=== PATIENT | female | born 1965 ===

== ENCOUNTER 2016-09-18 16:57 | Emergency (ER) | payer BC ==
[2016-09-18 17:16] VITALS: BP 118/67; PULSE 61; RESP 16; TEMP 97.5; O2SAT 100
--- NOTE | 2016-09-18 17:28 | ED PDOC ---
HPI: Abdomen Time Seen by Provider: 09/18/16 17:05 Chief Complaint (Nursing): Abdominal Pain Chief Complaint (Provider): Abdominal pain History Per: Patient Additional Complaint(s): 51 yo female, PMH of Fibromyalgia, presents to ED for evaluation of right abdominal pain since yesterday. Patient also reports vomiting and diarrhea. complains of generalized weakness. Past Medical History Vital Signs: Last Vital Signs Temp 97.5 F L 09/18/16 17:14 Pulse 61 09/18/16 17:14 Resp 16 09/18/16 17:14 BP 118/67 09/18/16 17:14 Pulse Ox 100 09/18/16 17:28 - Medical History PMH: Arthritis, Fibromyalgia, GERD, Chronic Pain Denies: Chronic Kidney Disease - Surgical History Surgical History: Cholecystectomy - Family History Family History: States: Unknown Family Hx - Immunization History Hx Tetanus Toxoid Vaccination: No Hx Influenza Vaccination: No Hx Pneumococcal Vaccination: No - Home Medications Home Medications: Ambulatory Orders Medication Instructions Recorded Fentanyl 1 each TD Q3D 02/23/16 Gabapentin [Neurontin] 1 cap PO TID #90 cap 02/23/16 traMADol [Ultram] 1 tab PO QID PRN #20 tab 02/23/16 Albuterol HFA [Ventolin HFA 90 2 puff IH [id number] PRN #1 bottle 05/07/16 mcg/actuation (8 g)] DiphenhydrAMINE [Benadryl] 25 mg PO Q6H #20 cap 05/07/16 Famotidine [Pepcid] 20 mg PO BID #20 tab 05/07/16 Prednisone 50 mg PO DAILY #4 tab 05/07/16 Ciprofloxacin [Cipro] 500 mg PO BID #6 tab 09/18/16 Ondansetron ODT [Zofran ODT] 4 mg PO Q6 PRN #10 odt 09/18/16 - Allergies Allergies/Adverse Reactions: Allergies Allergy/AdvReac Type Severity Reaction Status Date / Time seafood Allergy Intermediate RASH Uncoded 09/18/16 17:14 - Laboratory Results Result Diagrams: 09/18/16 17:49 09/18/16 17:49 - ECG O2 Sat by Pulse Oximetry: 100 Disposition - Clinical Impression Clinical Impression: UTI (lower urinary tract infection), Gastroenteritis - Patient ED Disposition Is Patient to be Admitted: No - Disposition Disposition: Routine/Home Disposition Time: 20:05 Condition: STABLE Prescriptions: Ciprofloxacin [Cipro] 500 mg PO BID #6 tab Ondansetron ODT [Zofran ODT] 4 mg PO Q6 PRN #10 odt PRN Reason: Nausea/Vomiting Instructions: Urinary Tract Infection in Women (DC), Gastroenteritis (ED) - POA Present On Arrival: None
[2016-09-18 17:53] LABS: BASO # 0.1 K/uL (0.0-0.2); BASO % 1.2 % (0.0-2.0); EOS # 0.2 K/uL (0.0-0.7); EOS % 2.4 % (0.0-4.0); HEMATOCRIT 39.7 % (34.0-47.0); LYMPH # 2.6 K/uL (1.0-4.3); LYMPH % 33.3 % (20.0-40.0); MEAN CELL VOLUME 85.9 fl (81.0-99.0); MEAN CORPUSCULAR HEMOGLOBIN 27.2 pg (27.0-31.0); MEAN CORPUSCULAR HGB CONC 31.6 g/dL (33.0-37.0); MEAN PLATELET VOLUME 7.5 fl (7.2-11.7); MONO # 0.5 K/uL (0.0-0.8); NEUT # 4.4 K/uL (1.8-7.0); NEUT % 57.1 % (50.0-75.0); NRBC % 0.1 % (0.0-0.0); WHITE BLOOD COUNT 7.7 K/uL (4.8-10.8)
--- NOTE | 2016-09-18 17:56 | RAD ---
HISTORY: Abdominal pain COMPARISON: Chest x-ray performed 05/07/16 TECHNIQUE: Chest, one view. FINDINGS: Examination limited by habitus. LUNGS: No focal consolidation. Please note that chest x-ray has limited sensitivity for the detection of pulmonary masses. PLEURA: No significant pleural effusion identified. No definite pneumothorax . CARDIOVASCULAR: The cardiomediastinal silhouette appears within normal limits of size. OSSEOUS STRUCTURES: No acute osseous abnormality identified. VISUALIZED UPPER ABDOMEN: Unremarkable. OTHER FINDINGS: None. IMPRESSION: No focal consolidation, significant pleural effusion, or definite pneumothorax identified.
[2016-09-18 18:02] LABS: ALB/GLOB RATIO 1.2 (1.0-2.1); ALKALINE PHOSPHATASE 118 U/L (38-126); ALT/SGPT 30 U/L (9-52); AMYLASE 111 U/L (30-110); AST/SGOT 24 U/L (14-36); BILIRUBIN,TOTAL 0.5 mg/dl (0.2-1.3); BLOOD UREA NITROGEN 8 mg/dl (7-17); CALCIUM 9.4 mg/dL (8.4-10.2); CARBON DIOXIDE 25 mmol/L (22-30); CHLORIDE 107 mmol/L (98-107); GFR AFRICAN-AMERICAN > 60; GLUCOSE,RANDOM 91 mg/dL (65-105); LIPASE 125 U/L (23-300); POTASSIUM 3.8 MMOL/L (3.6-5.0); SODIUM 142 mmol/l (132-148); TOTAL PROTEIN 7.7 G/DL (6.3-8.2)
[2016-09-18 18:19] LABS: RBC URINE 10 /hpf (0-3); URINE BACTERIA RARE (<OCC); URINE BILIRUBIN NEGATIVE (NEGATIVE); URINE BLOOD SMALL (NEGATIVE); URINE COLOR AMBER (YELLOW); URINE GLUCOSE (UA) NEG (Normal); URINE KETONE NEGATIVE (NEGATIVE); URINE LEUKOCYTE ESTERASE TRACE Leu/uL (Negative); URINE PROTEIN 30 mg/dL (NEGATIVE); URINE UROBILINOGEN 0.2-1.0 mg/dL (0.2-1.0); WBC URINE 15 /hpf (0-5)
--- NOTE | 2016-09-19 08:54 | CARD ---
APPROVED REPORT EKG Measurement Heart [id number] <Conclusion> Sinus bradycardia Otherwise normal ECG
== END 2016-09-18 20:40 | disposition home or self-care (01) ==
LOC: H.ER 16:57
DX: R10.9 Unspecified abdominal pain (principal); R07.9 Chest pain, unspecified
CPT/HCPCS: 71010; 80053; 81003; 82150; 83690; 84484; 85025; 93005; 96374; 96375; 99282; J1885; J2405

== ENCOUNTER 2017-09-07 15:43 | Emergency (ER) | payer BC ==
--- NOTE | 2017-09-07 16:38 | ED PDOC ---
HPI: Trauma/Fall - HPI Time Seen by Provider: 09/07/17 16:24 Chief Complaint (Nursing): Trauma Chief Complaint (Provider): Ankle, knees, and upper and loewr back pain History Per: Patient History/Exam Limitations: no limitations Onset/Duration Of Symptoms: Days (x2) Location Of Injury: Right: Knee, Left: Ankle, Knee, Posterior: Back Additional Complaint(s): 52 year old female presented to ED complaining of left ankle, both knees, and upper and lower back pain after she fell yesterday. Patient reports she twisted her left ankle and fell to her knees yesterday. She had taken advil without relief. PCP: Haris Portillo Past Medical History Reviewed: Historical Data, Nursing Documentation, Vital Signs Vital Signs: Last Vital Signs Temp 98 F 09/07/17 15:48 Pulse 90 09/07/17 15:48 Resp 18 09/07/17 15:48 BP Pulse Ox 100 09/07/17 16:45 - Medical History PMH: Arthritis, Fibromyalgia, GERD, Chronic Pain Denies: Chronic Kidney Disease - Surgical History Surgical History: Cholecystectomy - Family History Family History: States: Unknown Family Hx - Social History Current smoker - smoking cessation education provided: No Alcohol: None Drugs: Denies - Immunization History Hx Tetanus Toxoid Vaccination: No Hx Influenza Vaccination: No Hx Pneumococcal Vaccination: No - Home Medications Home Medications: Ambulatory Orders Medication Instructions Recorded Fentanyl 1 each TD Q3D 02/23/16 Gabapentin [Neurontin] 1 cap PO TID #90 cap 02/23/16 traMADol [Ultram] 1 tab PO QID PRN #20 tab 02/23/16 Albuterol HFA [Ventolin HFA 90 2 puff IH [id number] PRN #1 bottle 05/07/16 mcg/actuation (8 g)] DiphenhydrAMINE [Benadryl] 25 mg PO Q6H #20 cap 05/07/16 Famotidine [Pepcid] 20 mg PO BID #20 tab 05/07/16 Prednisone 50 mg PO DAILY #4 tab 05/07/16 Ciprofloxacin [Cipro] 500 mg PO BID #6 tab 09/18/16 Ondansetron ODT [Zofran ODT] 4 mg PO Q6 PRN #10 odt 09/18/16 Naproxen 375 mg PO Q8 PRN #21 tablet 09/07/17 diaZEpam [Valium] 5 mg PO Q6 PRN #4 tab 09/07/17 - Allergies Allergies/Adverse Reactions: Allergies Allergy/AdvReac Type Severity Reaction Status Date / Time seafood Allergy Intermediate RASH Uncoded 09/18/16 17:14 Review of Systems ROS Statement: Except As Marked, All Systems Reviewed And Found Negative Musculoskeletal: Positive for: Back Pain (upper and lower), Other (left ankle and both knee pain) Physical Exam - Reviewed Nursing Documentation Reviewed: Yes Vital Signs Reviewed: Yes - Physical Exam Appears: Positive for: Non-toxic. Negative for: No Acute Distress (moderate painful distress) Head Exam: Positive for: ATRAUMATIC, NORMAL INSPECTION, NORMOCEPHALIC Skin: Positive for: Normal Color, Warm, Dry Eye Exam: Positive for: Normal appearance Neck: Positive for: Normal, Painless ROM Back: Positive for: Other (Para cervical and para lumbar tenderness) Extremity: Positive for: Normal ROM. Negative for: Swelling (no obvious swelling of knees and ankles) Neurologic/Psych: Positive for: Alert, Oriented - ECG O2 Sat by Pulse Oximetry: 100 (RA) Pulse Ox Interpretation: Normal - Progress ED Course And Treament: XRY OF KNEE LEFT: NO FX XRY OF LEFT ANKLE: NO FX XRY OF RIGHT ANKLE: NO FX GIVEN Medical Decision Making Medical Decision Making: Initial Impression: Left ankle, both knees, and upper and lower back pain Initial Plan: Toradol 30mg IM Scribe Attestation: Documented by Alfredo Guzman acting as a scribe for Evelina FERNANDEZ. Provider Scribe Attestation: All medical record entries made by the Scribe were at my direction and personally dictated by me. I have reviewed the chart and agree that the record accurately reflects my personal performance of the history, physical exam, medical decision making, and the department course for this patient. I have also personally directed, reviewed, and agree with the discharge instructions and disposition. Disposition - Clinical Impression Clinical Impression: Back strain, Right knee sprain - Patient ED Disposition Is Patient to be Admitted: No - Disposition Disposition: Routine/Home Disposition Time: 19:07 Condition: FAIR Prescriptions: diaZEpam [Valium] 5 mg PO Q6 PRN #4 tab PRN Reason: Muscle Spasm Naproxen 375 mg PO Q8 PRN #21 tablet PRN Reason: Pain, Moderate (4-7) Instructions: Muscle Strain (DC), Knee Sprain (DC)
--- NOTE | 2017-09-07 17:46 | RAD ---
PROCEDURE: Right Ankle Radiographs. HISTORY: ANKLE INJURY COMPARISON: 09/19/2013 right ankle radiographs FINDINGS: BONES: Normal. No fracture. JOINTS: Normal. No osteoarthritis. Ankle mortise maintained. Talar dome intact SOFT TISSUES: Lateral soft tissue swelling without distal fibular fracture. OTHER FINDINGS: None. IMPRESSION: Soft tissue swelling without acute articular or osseous abnormality.
--- NOTE | 2017-09-07 17:46 | RAD ---
PROCEDURE: Left Knee Radiographs. HISTORY: Posttraumatic knee pain COMPARISON: 10/07/2013 left knee radiographs FINDINGS: BONES: Normal. No fracture. JOINTS: Normal. No osteoarthritis. JOINT EFFUSION: None. OTHER FINDINGS: None. IMPRESSION: Normal radiographs of the left knee.No significant interval change compared to the prior examination(s).
--- NOTE | 2017-09-07 17:47 | RAD ---
PROCEDURE: Left Ankle Radiographs. HISTORY: ANKLE INJUYR COMPARISON: None FINDINGS: BONES: Normal. No fracture. JOINTS: Normal. No osteoarthritis. Ankle mortise maintained. Talar dome intact SOFT TISSUES: Lateral soft tissue swelling without distal fibular abnormality. OTHER FINDINGS: None. IMPRESSION: Soft tissue swelling without acute articular or osseous abnormality.
[2017-09-07] MEDS ORDERED: Oxycodone/Acetaminophen 5/325 mg Tab PO STA (17:50)
[2017-09-07] MEDS ORDERED: Oxycodone/Acetaminophen 5/325 mg Tab ONE (18:08)
[2017-09-07 19:14] VITALS: BP 105/65; PULSE 70; RESP 16; TEMP 98.5
[2017-09-07 21:50] VITALS: O2SAT 100
== END 2017-09-07 19:14 | disposition home or self-care (01) ==
LOC: H.ER 15:43
DX: S83.91XA Sprain of unspecified site of right knee, initial encounter (principal); S39.012A Strain of muscle, fascia and tendon of lower back, initial encounter; W01.0XXA Fall on same level from slipping, tripping and stumbling without subsequent striking against object, initial encounter; Y92.89 Other specified places as the place of occurrence of the external cause; G89.29 Other chronic pain; K21.9 Gastro-esophageal reflux disease without esophagitis; M79.7 Fibromyalgia
CPT/HCPCS: 29530; 73562; 73610; 81025; 96372; 99285; J1885

== ENCOUNTER 2017-12-17 20:41 | Emergency (ER) | payer BC ==
[2017-12-17 22:35] LABS: BASO # 0.1 K/uL (0.0-0.2); BASO % 0.7 % (0.0-2.0); EOS # 0.1 K/uL (0.0-0.7); LYMPH # 2.6 K/uL (1.0-4.3); LYMPH % 37.4 % (20.0-40.0); MEAN CORPUSCULAR HEMOGLOBIN 27.4 pg (27.0-31.0); MEAN CORPUSCULAR HGB CONC 32.2 g/dL (33.0-37.0); MEAN PLATELET VOLUME 8.2 fl (7.2-11.7); MONO # 0.4 K/uL (0.0-0.8); NEUT # 3.7 K/uL (1.8-7.0); NEUT % 53.9 % (50.0-75.0); NRBC % 0.1 % (0.0-0.0); RBC 4.39 Mil/uL (3.80-5.20); WHITE BLOOD COUNT 6.9 K/uL (4.8-10.8)
[2017-12-17 23:08] LABS: ALB/GLOB RATIO 1.1 (1.0-2.1); ALBUMIN 3.8 g/dL (3.5-5.0); ALT/SGPT 28 U/L (9-52); AST/SGOT 28 U/L (14-36); BLOOD UREA NITROGEN 10 mg/dl (7-17); CALCIUM 9.6 mg/dL (8.4-10.2); GFR NON-AFRICAN AMERICAN > 60; LIPASE 165 U/L (23-300)
--- NOTE | 2017-12-17 23:36 | ED PDOC ---
HPI: General Adult Time Seen by Provider: 12/17/17 21:23 Chief Complaint (Nursing): Chest Pain Chief Complaint (Provider): Body pain History Per: Patient History/Exam Limitations: no limitations Onset/Duration Of Symptoms: Hrs (x 4) Current Symptoms Are (Timing): Still Present Additional Complaint(s): 52 year old female with a history of chronic pain, fibromyalgia, arthritis and GERD presents to the ED with complete body pain, onset a few hours prior to arrival. Patient reports developing left sided chest pain, leg pain and general body aches as well as slightly nauseous. Denies fever and vomiting. PMD: Dr. Haris Hensley Past Medical History Reviewed: Historical Data, Nursing Documentation, Vital Signs Vital Signs: Last Vital Signs Temp 98.6 F 12/17/17 20:52 Pulse 67 12/17/17 20:52 Resp 16 12/17/17 20:52 BP 130/78 12/17/17 20:52 Pulse Ox 99 12/17/17 23:42 - Medical History PMH: Arthritis, Fibromyalgia, GERD, Chronic Pain Denies: Chronic Kidney Disease - Surgical History Surgical History: Cholecystectomy, (x 2) Other surgeries: laproscopic exploratory surgery on abdomen - Family History Family History: States: Unknown Family Hx - Social History Current smoker - smoking cessation education provided: No Alcohol: None Drugs: Denies - Immunization History Hx Tetanus Toxoid Vaccination: No Hx Influenza Vaccination: No Hx Pneumococcal Vaccination: No - Home Medications Home Medications: Ambulatory Orders Medication Instructions Recorded Fentanyl 1 each TD Q3D 02/23/16 Gabapentin [Neurontin] 1 cap PO TID #90 cap 02/23/16 traMADol [Ultram] 1 tab PO QID PRN #20 tab 02/23/16 Albuterol HFA [Ventolin HFA 90 2 puff IH [id number] PRN #1 bottle 05/07/16 mcg/actuation (8 g)] DiphenhydrAMINE [Benadryl] 25 mg PO Q6H #20 cap 05/07/16 Famotidine [Pepcid] 20 mg PO BID #20 tab 05/07/16 Prednisone 50 mg PO DAILY #4 tab 05/07/16 Ciprofloxacin [Cipro] 500 mg PO BID #6 tab 09/18/16 Ondansetron ODT [Zofran ODT] 4 mg PO Q6 PRN #10 odt 06/01/17 Naproxen 375 mg PO Q8 PRN #21 tablet 09/07/17 diaZEpam [Valium] 5 mg PO Q6 PRN #4 tab 09/07/17 - Allergies Allergies/Adverse Reactions: Allergies Allergy/AdvReac Type Severity Reaction Status Date / Time seafood Allergy Intermediate RASH Uncoded 12/17/17 20:52 Review of Systems ROS Statement: Except As Marked, All Systems Reviewed And Found Negative Cardiovascular: Positive for: Chest Pain (left sided) Musculoskeletal: Positive for: Other (whole body pain) Physical Exam - Reviewed Nursing Documentation Reviewed: Yes Vital Signs Reviewed: Yes - Physical Exam Appears: Positive for: Non-toxic, No Acute Distress Head Exam: Positive for: ATRAUMATIC, NORMAL INSPECTION, NORMOCEPHALIC Skin: Positive for: Normal Color, Warm, Dry Eye Exam: Positive for: EOMI, Normal appearance, PERRL Neck: Positive for: Normal, Painless ROM, Supple Cardiovascular/Chest: Positive for: Regular Rate, Rhythm. Negative for: Murmur Respiratory: Positive for: Normal Breath Sounds. Negative for: Wheezing, Respiratory Distress Gastrointestinal/Abdominal: Positive for: Normal Exam, Soft. Negative for: Tenderness Extremity: Positive for: Normal ROM. Negative for: Deformity Neurologic/Psych: Positive for: Alert, Oriented (x 3). Negative for: Motor/ Sensory Deficits - Laboratory Results Result Diagrams: 12/17/17 22:26 12/17/17 22:26 - ECG O2 Sat by Pulse Oximetry: 99 (RA) Pulse Ox Interpretation: Normal Medical Decision Making Medical Decision Makin:07 Impression: whole body pain Initial Plan: --CXR --Lipase --troponin --CBC Time; 22:40 --Pepcid 20 mg IVP --Toradol 30 mg IV Scribe Attestation: Documented by Carla Barber acting as a scrsean Mcdowell MD Provider Maribkeven Attestation: All medical record entries made by the Arden were at my direction and personally dictated by me. I have reviewed the chart and agree that the record accurately reflects my personal performance of the history, physical exam, medical decision making, and the department course for this patient. I have also personally directed, reviewed, and agree with the discharge instructions and disposition. Disposition - Clinical Impression Clinical Impression: Fibromyalgia affecting multiple sites - Disposition Condition: IMPROVED Additional Instructions: follow up with your doctor Dr Hensley in 1-2 days return to the ED with any worsening or concerning symptoms Instructions: Fibromyalgia Forms: [facility] [employer] [facility] (Guatemalan)
[2017-12-18 00:19] VITALS: BP 122/71; PULSE 72; RESP 18; TEMP 98.2; O2SAT 100
--- NOTE | 2017-12-18 11:34 | RAD ---
HISTORY: chest pain COMPARISON: Chest x-ray performed 09/18/16 TECHNIQUE: Chest PA and lateral FINDINGS: Examination limited by habitus. LUNGS: Biapical pleural thickening. No focal consolidation. Please note that chest x-ray has limited sensitivity for the detection of pulmonary masses. PLEURA: No significant pleural effusion identified. No definite pneumothorax . CARDIOVASCULAR: Heart size appears within normal limits. Atherosclerotic calcification of the aorta. OSSEOUS STRUCTURES: Degenerative changes. Kyphosis. VISUALIZED UPPER ABDOMEN: Right upper quadrant surgical clips. OTHER FINDINGS: None. IMPRESSION: Biapical pleural thickening. No focal consolidation, significant pleural effusion, or definite pneumothorax identified.
== END 2017-12-18 00:19 | disposition home or self-care (01) ==
LOC: H.ER 20:41
DX: M79.7 Fibromyalgia (principal); R07.89 Other chest pain; G89.29 Other chronic pain; K21.9 Gastro-esophageal reflux disease without esophagitis
CPT/HCPCS: 71046; 80053; 83690; 84484; 85025; 96374; 99284; J1885

== ENCOUNTER 2018-08-23 12:21 | Emergency (ER) | payer BC ==
[2018-08-23 12:28] VITALS: BMI 29.2
[2018-08-23 12:30] VITALS: BP 111/73; PULSE 62; RESP 17; TEMP 98.3; O2SAT 97
--- NOTE | 2018-08-23 13:47 | ED PDOC ---
Upper Extremity Pain/Injury Time Seen by Provider: 08/23/18 12:47 Chief Complaint (Nursing): Upper Extremity Problem/Injury Chief Complaint (Provider): Left elbow pain History Per: Patient History/Exam Limitations: no limitations Onset/Duration Of Symptoms: Persistent ("weeks") Exacerbating Factor(s): Strenuous Use Of Affected Area, Movement Additional Complaint(s): Patient has history of fibromyalgia, comes to ER reporting left elbow pain for the past couple weeks. Patient is right hand dominant and works in an office lifting folders, and boxes. She denies any increase in her activity in the past couple weeks. She also has taken over the counter pain medication with no relief of symptoms. Otherwise, no weakness, numbness, paresthesia, chest pain or other complaints. PMD: Dr. Hensley Past Medical History Reviewed: Historical Data, Nursing Documentation, Vital Signs Vital Signs: Last Vital Signs Temp 98.3 F 08/23/18 12:28 Pulse 62 08/23/18 12:28 Resp 17 08/23/18 12:28 BP 111/73 08/23/18 12:28 Pulse Ox 97 08/23/18 12:28 Primary Care Provider: Haris Hensley - Medical History PMH: Arthritis, Fibromyalgia, GERD, Chronic Pain Denies: Chronic Kidney Disease - Surgical History Surgical History: Cholecystectomy, (x 2) - Family History Family History: States: Unknown Family Hx - Immunization History Hx Tetanus Toxoid Vaccination: No Hx Influenza Vaccination: No Hx Pneumococcal Vaccination: No - Home Medications Home Medications: Ambulatory Orders Medication Instructions Recorded Fentanyl 1 each TD Q3D 02/23/16 Gabapentin [Neurontin] 1 cap PO TID #90 cap 02/23/16 traMADol [Ultram] 1 tab PO QID PRN #20 tab 02/23/16 Albuterol HFA [Ventolin HFA 90 2 puff IH [id number] PRN #1 bottle 05/07/16 mcg/actuation (8 g)] DiphenhydrAMINE [Benadryl] 25 mg PO Q6H #20 cap 05/07/16 Famotidine [Pepcid] 20 mg PO BID #20 tab 05/07/16 Prednisone 50 mg PO DAILY #4 tab 05/07/16 Ciprofloxacin [Cipro] 500 mg PO BID #6 tab 09/18/16 Ondansetron ODT [Zofran ODT] 4 mg PO Q6 PRN #10 odt 09/18/16 Naproxen 375 mg PO Q8 PRN #21 tablet 09/07/17 diaZEpam [Valium] 5 mg PO Q6 PRN #4 tab 09/07/17 predniSONE [predniSONE Tab] 20 mg PO DAILY #12 tab 08/23/18 - Allergies Allergies/Adverse Reactions: Allergies Allergy/AdvReac Type Severity Reaction Status Date / Time seafood Allergy Intermediate RASH Uncoded 08/23/18 12:28 Review of Systems Musculoskeletal: Positive for: Other (left elbow pain) Neurological: Negative for: Weakness, Numbness Physical Exam - Reviewed Nursing Documentation Reviewed: Yes Vital Signs Reviewed: Yes - Physical Exam Appears: Positive for: Non-toxic, Uncomfortable Head Exam: Positive for: NORMAL INSPECTION Skin: Positive for: Normal Color Eye Exam: Positive for: Normal appearance Neck: Positive for: Supple Cardiovascular/Chest: Negative for: Bradycardia, Tachycardia Respiratory: Negative for: Respiratory Distress Pulses-Radial (L): 2+ Extremity: Positive for: Tenderness (point tenderness to left lateral epicondyle region), Other (No ecchymosis, no lesions ). Negative for: Normal ROM (Decreased ROM at elbow due to pain), Deformity, Swelling Neurological/Psych: Positive for: Awake, Alert. Negative for: Motor/Sensory Deficits - ECG O2 Sat by Pulse Oximetry: 97 (RA) Pulse Ox Interpretation: Normal Medical Decision Making Medical Decision Making: Impression: Left elbow pain, likely lateral epicondylitis Plan: -- Toradol 30mg IM Patient to be discharged home with prescription for steroid course Informed to follow up with PMD as well as orthopedist for further evaluation if symptoms are not relieved. Stable for discharge home. Scribe Attestation: Documented by Apryl Frazier, acting as a scribe for JIM Montero Provider Scribe Attestation: All medical record entries made by the Scribe were at my direction and personally dictated by me. I have reviewed the chart and agree that the record accurately reflects my personal performance of the history, physical exam, medical decision making, and the department course for this patient. I have also personally directed, reviewed, and agree with the discharge instructions and disposition. Disposition - Clinical Impression Clinical Impression: Epicondylitis, lateral - Disposition Referrals: Gerda Kirk MD [Staff Provider] - Disposition: Routine/Home Disposition Time: 14:07 Condition: STABLE Prescriptions: predniSONE [predniSONE Tab] 20 mg PO DAILY #12 tab Instructions: Lateral Epicondylitis Forms: [facility] (Maltese), [facility] School/Work Excuse
== END 2018-08-23 14:33 | disposition home or self-care (01) ==
LOC: H.ER 12:21
DX: M77.12 Lateral epicondylitis, left elbow (principal); G89.29 Other chronic pain; M79.7 Fibromyalgia
CPT/HCPCS: 96372; 99283; J1885